=== PATIENT | female | born 1960 | race Caucasian/White ===

== ENCOUNTER 2018-10-10 07:11 | Day surgery (SDC) | payer OTHER ==
[2018-10-10] MEDS ORDERED: PROPOFOL 200 MG/20 ML VIAL IV ONE (08:48)
[2018-10-10] MEDS ORDERED: FAMOTIDINE 20 MG/2 ML VIAL IV ONE (08:48)
[2018-10-10] MEDS ORDERED: SEVOFLURANE 250 ML LIQUID IH ONE (08:48)
[2018-10-10] MEDS ORDERED: fentaNYL CITRATE/PF 100 MCG/2 ML INJ. ONE ×2 (08:48→12:56)
[2018-10-10] MEDS ORDERED: LACTATED RINGERS 1,000 ML IV.SOLN IV ONE ×2 (08:48)
[2018-10-10] MEDS ORDERED: MIDAZOLAM HCL 2 MG/2 ML VIAL ONE (08:48)
[2018-10-10] MEDS ORDERED: DEXAMETHASONE SODIUM PHOSPHATE 10 MG/ML VIAL ONE (08:48)
[2018-10-10] MEDS ORDERED: FENTANYL CITRATE/PF 250 MCG/5 ML INJ. ONE (08:48)
[2018-10-10] MEDS ORDERED: ePHEDrine SULFATE 50 MG/1 ML IVP ONE (08:48)
[2018-10-10] MEDS ORDERED: ENOXAPARIN SODIUM 40 MG/0.4 ML DISP.SYRIN SQ ONE (08:48)
[2018-10-10] MEDS ORDERED: ROCURONIUM BROMIDE 10 MG/ML 5ML VIAL ONE (08:48)
[2018-10-10] MEDS ORDERED: CLINDAMYCIN PHOSPHATE 900 MG/6 ML VIAL ONE (08:48)
[2018-10-10] MEDS ORDERED: SCOPOLAMINE HYDROBROMIDE 1.5MG/72HR PATCH TD ONE (08:48)
[2018-10-10] MEDS ORDERED: HYDROmorphone HCL/PF 1 MG/ML VIAL ONE ×2 (08:48→13:10)
[2018-10-10] MEDS ORDERED: LIDOCAINE HCL 2% PF 100MG/5ML VIAL IJ ONE (08:48)
[2018-10-10] MEDS ORDERED: SUGAMMADEX SODIUM 200 MG/2 ML VIAL IV ONE (08:48)
[2018-10-10] MEDS ORDERED: ONDANSETRON HCL/PF 4 MG/ 2ML VIAL ONE (08:48)
--- NOTE | 2018-10-11 12:07 | Operative Note ---
PREOPERATIVE DIAGNOSIS: 1. Morbid obesity. 2. Hypertension. 3. Gastroesophageal reflux disease. 4. Hyperlipidemia. 5. Type 2 diabetes. 6. Sleep apnea. POSTOPERATIVE DIAGNOSIS: 1. Morbid obesity. 2. Hypertension. 3. Gastroesophageal reflux disease. 4. Hyperlipidemia. 5. Type 2 diabetes. 6. Sleep apnea. PROCEDURES PERFORMED: 1. Laparoscopic vertical sleeve gastrectomy. 2. Upper gastrointestinal endoscopy. SURGEON: Dhaval Guaman M.D. INDICATIONS FOR PROCEDURE: Ms. Pierre is a 56-year-old female who presented with features of morbid obesity. She was noted to have a weight of 203 pounds with a BMI of 38.9 with the above-listed comorbidities. The patient was advised laparoscopic vertical sleeve gastrectomy and possible hiatal hernia repair. The patient showed understanding and agreed to proceed. DESCRIPTION OF PROCEDURE: After explaining to the patient in detail and informed consent was obtained, the patient was identified in the preoperative holding area. The patient was transferred to the operating room and was placed in supine position. Sequential compressive devices were placed for DVT prophylaxis. Preoperative antibiotics were given. After induction of anesthesia, the abdomen was prepped and draped in a sterile fashion. Through a left upper quadrant 1-cm incision, and using Optiview technique, the peritoneal cavity was entered and pneumoperitoneum was created. Thereafter, under direct vision, another 5-mm trocar was placed in the left midabdomen and another 15-mm trocar was placed in the right midabdomen. Through a 1-cm incision in the right subcostal region, another 5-mm trocar was placed. Through a 1-cm incision in the epigastrium, a Malik retractor was introduced and the left lobe of the liver was retracted. On initial inspection, the patient was noted to have no evidence of hiatal hernia. I took down the gastroepiploic vessels using a LigaSure. This was continued superiorly. The short gastric vessels were taken down. The gastrophrenic ligament was divided and the Angle of His was mobilized. The posterior attachments of the stomach on the pancreas were released. Distally, the gastroepiploic vessels were taken down up to about 4 cm proximal to the pylorus. At this point, a #38 [place]st Bougie was introduced into the stomach and was placed along the lesser curve. The stomach was then divided in a vertical fashion with multiple Endo DANIE Covidien Black Load Staplers. The first firing was directed outwards towards the greater curvature. Subsequent firings were directed towards the Angle of His to create a loose sleeve around the #38 [place] bougie. The bougie was then removed and an upper GI endoscopy was performed at this point. The scope was introduced into the esophagus and was gradually advanced into the stomach. The GE junction appeared normal. The sleeve size appeared normal. No evidence of any active bleeding was noted. The stomach was insufflated with air and irrigation of fluid along the staple line revealed no evidence of air leak. The stomach was then suctioned out and the scope was removed. Absolute hemostasis was ensured. Thorough saline irrigation was given. The Malik retractor was removed. Approximately 10 mL of a lidocaine- Marcaine mix was instilled under the left hemidiaphragm. The sleeve gastrectomy specimen was removed. The abdomen was then deflated. The incisions were closed with 4-0 Monocryl. Dermabond was applied. Approximately 10 mL of a lidocaine- Marcaine mix was injected into all the incisions. The patient was awakened from anesthesia and was transferred to the recovery room in stable condition. ESTIMATED BLOOD LOSS: Approximately 25 mL. CONDITION OF THE PATIENT: Stable. FLUIDS GIVEN: Per Anesthesia note. SPECIMEN(S) SENT: Sleeve gastrectomy specimen. COMPLICATIONS: None. ANESTHESIA: General. Dhaval Guaman M.D. GINA/aj Job #[id number] @ 1236 @ 1132 MTDD
== END 2018-10-10 14:04 | disposition other institution (70) ==
LOC: OPSURG 07:11
PROVIDERS: ATTEND Surgery
DX: E66.01 Morbid (severe) obesity due to excess calories (principal); Z68.38 Body mass index [BMI] 38.0-38.9, adult; E11.9 Type 2 diabetes mellitus without complications; I10 Essential (primary) hypertension; E78.5 Hyperlipidemia, unspecified; G47.33 Obstructive sleep apnea (adult) (pediatric)
CPT/HCPCS: 43235; 43775; 88305; A9270; J1170; J1650; J2001; J2250; J2405; J2704; J3010; J7120

== ENCOUNTER 2018-10-10 14:05 | Inpatient (IN) | payer OTHER ==
[2018-10-10] MEDS ORDERED: HYDROmorphone HCL 2 MG TABLET PO PRN (15:20)
--- NOTE | 2018-10-10 15:20 | History and Physical Report ---
History of Present Illnes - History of Present Illness Reason for Visit: s/p gastric sleeve History of Present Illness: Patient is a 57-year-old white female with a 10 year history of increasing weight gain to the point she now has morbid obesity. Patient has tried various dietary regimen medications and exercising is not been successful in maintaining weight loss. 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 Gastrointestinal: GERD Heme/Onc: Anemia NOS (iron def) Psych: Depression Endocrine: Diabetes (Last A1c 6.1) - Past Surgical History Past Surgical History: , Other (carpal tunnel release bilteral, removal of blood clot in left thigh, right ooperectomy, ORIF right ankle, left carotid enderarterectomy with stent, athrosocpy right knee) - Past Family History Mother Family History: Cancer (stomach), (75yo) Father Family History: CAD, (41yo) Brother 1 Family History: CAD, (41) Brother 2 Family History: CAD, (54) Brother 3 Family History: DM, Hypertension Brother 4 Family History: DM, Hypertension Sister 1 Family History: DM, Hypertension Sister 2 Family History: DM Sister 3 Family History: DM, Hypertension Sister 4 Family History: DM, Hypertension - Past Social History Smoke: No Alcohol: None, Occassional ( carotid a) Drugs: None Lives: With Family Domestic Violence: Negative - Health Maintenance Health Maintenance: Influenza Vaccine Influenza Vaccine: Current for this Influenza Season Pneumonia Vaccine: No - Unable to Obtain History Unable to Obtain: No Review of Systems - Review of Systems Constitutional: negative: Fever, Chills, Weakness Eyes: negative: pain, conjunctivae inflammation ENT: negative: Ear Pain, Ear Discharge, Nose Pain, Nose Discharge, Nose Congestion, Mouth Pain Respiratory: negative: Cough, Shortness of Breath, Hemoptysis, SOB with Excertion, Pleuritic Pain Cardiovascular: negative: Chest Pain, Palpitations, Light Headedness Gastrointestinal: negative: Nausea, Vomiting, Abdominal Pain, Diarrhea, Constipation, Melena, Hematochezia Genitourinary: negative: Dysuria, Frequency, Incontinence Musculoskeletal: negative: Back Pain Skin: negative: Rash, Jaundice Neurological: negative: Weakness, Numbness, Incoordination, Change in Speech, Confusion, Seizures - Medications/Allergies Allergies/Adverse Reactions: Allergies Allergy/AdvReac Type Severity Reaction Status Date / Time latex Allergy Verified 10/10/18 20:53 Penicillins Allergy Verified 10/10/18 20:53 trazodone Allergy Verified 10/10/18 20:53 Home Medications: Home Medications Aspirin [Lo-Dose Aspirin EC] 81 mg PO D 10/10/18 Atorvastatin Calcium 10 mg PO HS 10/10/18 Calcium Carbonate/Vitamin D3 [Calcium 600-Vit D3 200 Tablet] 1 each PO BID 10/10/18 Clopidogrel Bisulfate [Plavix] 75 mg PO QD 10/10/18 Cyanocobalamin (Vitamin B-12) [Vitamin B-12] 1,000 mcg PO D 10/10/18 Ergocalciferol (Vitamin D2) [Vitamin D2] 50,000 unit PO WEEK 10/10/18 Ferrous Sulfate [Iron] 325 mg PO D 10/10/18 Hydroxyzine HCl 50 mg PO BID 10/10/18 Liraglutide [Victoza 2-Kit] 1.2 mg SQ D 10/10/18 Losartan/Hydrochlorothiazide [Losartan-Hctz 100-25 mg Tab] 1 each PO D 10/10/18 Metformin HCl 1,000 mg PO BID 10/10/18 Metoprolol Tartrate [Lopressor] 25 mg PO BID 10/10/18 Pantoprazole Sodium [Protonix] 20 mg PO BID 10/10/18 Venlafaxine HCl [Venlafaxine HCl ER] 75 mg PO BID 10/10/18 Exam - Exam General: Alert, Oriented to Person, Oriented to Place, Oriented to Time, Cooperative HEENT: Atraumatic, PERRLA, EOMI, Mouth Mucous membr. moist/[place], Nose Mucous membr. moist/[place], Dentition Normal Neck: Normal Range of Motion Lungs: Clear to auscultation, Normal air movement, Speaks full Sentences Cardiovascular: Regular rate, Normal S1, Normal S2, No murmurs Peripheral Edema: none Peripheral Pulses: intact and normal Abdomen: Normal bowel sounds, Soft, No hepatospenomegaly, No masses, Other (mild diffuse tenderness, incision sites clean and dry) Integumentary: Normal, [place], Warm, Dry Extremities: No clubbing, No cyanosis, No edema, Normal pulses, No tenderness/swelling Neurological: Normal gait, Normal speech, Strength Equal Bilat, Normal tone, Sensation intact, Cranial nerves 3-12 NL, Reflexes 2+ Psych/Mental Status: Mental status NL, Mood NL, Appropriate Affect, Intact Judgment Assessment/Plan - Assessment/Plan (1) S/P gastric surgery Status: Acute (2) Diabetes type 2, controlled Status: Acute Qualifiers: 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
[2018-10-10] MEDS ORDERED: 0.9 % SODIUM CHLORIDE 1,000 ML IV ONE (15:46)
[2018-10-10] MEDS: ONDANSETRON HCL/PF 4 MG/ 2ML VIAL IVP PRN (16:30)
[2018-10-10] MEDS: HYDROCODON-ACETAMIN 7.5-325/15ML SOLN UD CUP PO PRN ×2 (16:30→20:54)
[2018-10-10] MEDS: KETOROLAC TROMETHAMINE 30 MG/1ML VIAL IV PRN (16:30)
[2018-10-10] MEDS: 0.9 % SODIUM CHLORIDE 1,000 ML IV SCH ×3 (16:34→22:43)
[2018-10-10] MEDS: CLOPIDOGREL BISULFATE 75 MG TABLET PO SCH (17:43)
[2018-10-10] MEDS ORDERED: CLINDAMYCIN PHOSPHATE/D5W 50 ML IV ONE (18:37)
[2018-10-10 18:42] VITALS: BMI 39.8
[2018-10-10] MEDS: CLINDAMYCIN PHOSPHATE/D5W 600 MG in PREMIX BAG 1 BAG IV SCH (20:44)
[2018-10-10] MEDS: FAMOTIDINE 20 MG/2 ML VIAL IVP SCH (21:16)
[2018-10-11] MEDS ORDERED: CLINDAMYCIN PHOSPHATE/D5W 600 MG/50 ML PIGGYBACK IV ONE (03:30)
[2018-10-11] MEDS: CLINDAMYCIN PHOSPHATE/D5W 600 MG in PREMIX BAG 1 BAG IV SCH (03:35)
[2018-10-11] MEDS: HYDROCODON-ACETAMIN 7.5-325/15ML SOLN UD CUP PO PRN ×2 (03:39→09:08)
[2018-10-11] MEDS: 0.9 % SODIUM CHLORIDE 1,000 ML IV SCH ×3 (06:26→21:20)
--- NOTE | 2018-10-11 06:49 | Inpatient Progress Note ---
Subjective - Required Recertification Statement I anticipate X number of days because-include discharge plan: 1 - Review of Systems Events since last encounter: Patient states that she had a decent night-she had some nausea yesterday- she states nausea is mild this morning- abdominal pain is improving- she states that she has been belching and passing gas. She is excited that she will get to advance her diet today- she has family at the bedside- educated patient on continuing to ambulate today, continue to use incentive spirometer frequently and use SCDs while in bed. General: Denies: Chills, Night Sweats HEENT: Denies: Head Aches, Sinus Congestion Pulmonary: Denies: Dyspnea Cardiovascular: Denies: Chest Pain, Light Headedness Gastrointestinal: Nausea, Abdominal Pain. Denies: Vomiting Genitourinary: Denies: Dysuria Musculoskeletal: Denies: Back Pain Neurological: Denies: Weakness, Confusion Objective - Exam Vitals and I&O: Vital Signs Temp 97.7 F 10/11/18 06:00 Pulse 75 10/11/18 06:00 Resp 18 10/11/18 06:00 BP 111/49 10/11/18 06:00 Pulse Ox 96 10/11/18 06:00 Intake & Output 10/10/18 10/10/18 10/11/18 11:59 23:59 11:59 Output Total 400 1200 Balance -400 -1200 Weight 92.5 kg Output: Urine 400 1200 Other: Voiding Method Toilet Toilet # Voids 2 # Bowel Movements 0 General: Alert, Oriented to Person, Oriented to Place, Oriented to Time, Cooperative, No acute distress, Morbidly Obese HEENT: PERRLA, Mouth Mucous membr. moist/[place], Nose Mucous membr. moist/[place] Neck: +2 carotid pulse wo bruit Lungs: Clear to auscultation, Normal air movement, Speaks full Sentences Cardiovascular: Regular rate, Normal S1, Normal S2 Abdomen: Soft, Decreased Bowel Sounds Extremities: No edema, Normal pulses, No tenderness/swelling Skin: Normal, [place], Warm, Dry Neurological: Normal gait, Normal speech, Strength Equal Bilat, Normal tone, Sensation intact Psych/Mental Status: Mental status NL, Mood NL, Appropriate Affect, Intact Judgment Assessment/Plan - Assessment/Plan (1) Diabetes type 2, controlled Status: Acute Current Visit: Yes Qualifiers: 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: without keno terminal operator use Diabetes mellitus complication status: without complication Qualified Code(s): E11.9 - Type 2 diabetes mellitus without complications Assessment: Will monitor blood sugars- will advance diet to stage 1 bariatric (2) Essential hypertension Status: Acute Current Visit: Yes Assessment: Blood pressures are stable Plan: Will continue to hold blood pressure medication and monitor closely (3) GERD without esophagitis Status: Acute Current Visit: Yes Assessment: Minimal nausea- no vomiting- will advance diet Plan: Will continue with Pepcid IV BID (4) S/P gastric surgery Status: Acute Current Visit: Yes Assessment: Incision without redness or drainage, positive bowel sounds, minimal discomfort, belching and flatus, no extremity pain or edema Plan: Will continue with IVF, IV Pepcid, frequent ambulation, frequent incentive spirometer use, SCDs while in bed, advance diet per bariatric stage 1
[2018-10-11] MEDS: ONDANSETRON HCL/PF 4 MG/ 2ML VIAL IVP PRN (09:20)
[2018-10-11] MEDS: KETOROLAC TROMETHAMINE 30 MG/1ML VIAL IV PRN (09:21)
[2018-10-11] MEDS: FAMOTIDINE 20 MG/2 ML VIAL IVP SCH ×2 (09:24→21:20)
[2018-10-11] MEDS: CLOPIDOGREL BISULFATE 75 MG TABLET PO SCH (18:08)
[2018-10-12] MEDS: KETOROLAC TROMETHAMINE 30 MG/1ML VIAL IV PRN ×2 (02:05→12:05)
[2018-10-12] MEDS: 0.9 % SODIUM CHLORIDE 1,000 ML IV SCH (04:56)
--- NOTE | 2018-10-12 06:58 | Discharge Summary ---
Discharge Summary - Discharge Sumary History of Present Illness: Patient is a 58-year-old white female with an extensive history of increasing weight gain to the point she now has morbid obesity. Patient has tried various dietary regimen medications and exercising is not been successful in maintaining weight loss. Condition at Discharge: Stable Home Medications: Ambulatory Orders Medication Instructions Recorded Aspirin [Lo-Dose Aspirin EC] 81 mg PO D 10/10/18 Atorvastatin Calcium 10 mg PO HS 10/10/18 Calcium Carbonate/Vitamin D3 1 each PO BID 10/10/18 [Calcium 600-Vit D3 200 Tablet] Clopidogrel Bisulfate [Plavix] 75 mg PO QD 10/10/18 Cyanocobalamin (Vitamin B-12) 1,000 mcg PO D 10/10/18 [Vitamin B-12] Ergocalciferol (Vitamin D2) 50,000 unit PO WEEK 10/10/18 [Vitamin D2] Ferrous Sulfate [Iron] 325 mg PO D 10/10/18 Hydroxyzine HCl 50 mg PO BID 10/10/18 Liraglutide [Victoza 2-Kit] 1.2 mg SQ D 10/10/18 Losartan/Hydrochlorothiazide 1 each PO D 10/10/18 [Losartan-Hctz 100-25 mg Tab] Metformin HCl 1,000 mg PO BID 10/10/18 Metoprolol Tartrate [Lopressor] 25 mg PO BID 10/10/18 Pantoprazole Sodium [Protonix] 20 mg PO BID 10/10/18 Venlafaxine HCl [Venlafaxine HCl 75 mg PO BID 10/10/18 ER] Consultations this Visit: None Procedures this Visit: Other (S/P Gastric Sleeve Surgery) Allergies/Adverse Reactions: Allergies Allergy/AdvReac Type Severity Reaction Status Date / Time latex Allergy Verified 10/10/18 20:53 Penicillins Allergy Verified 10/10/18 20:53 trazodone Allergy Verified 10/10/18 20:53 Patient Problems: Current Active Problems Problem Status Onset Diabetes type 2, controlled Acute Essential hypertension Acute GERD without esophagitis Acute Hyperlipemia Acute S/P gastric surgery Acute Status post CVA Acute Discharge Summary: Patient is a 58-year-old female that underwent the gastric sleeve procedure and has done well. She has been very cooperative with her care by ambulating frequently, using her incentive spirometer, and wearing her SCDs while in bed. She has been compliant with her diet during hospitalization. She is having minimal discomfort at this time and minimal nausea- she has is passing gas and belching. She is aware of discharge instructions and what she can and cannot do post surgical- she is aware of the strict diet she must follow to decrease discomfort and have success after procedure. She has family support and significant other will be taking her home- medications written by surgeon given to patient. She feels ready to go home. Hospital Course: Patient received pain medications, antiemetics, and IVF and was transitioned to oral. She has been up ambulating and using incentive spirometer. - Final Diagnosis (1) Diabetes type 2, controlled Problems: Blood sugars have been stable, she will check blood sugars daily- keep log and take to follow up appointment Right or Left: Right (2) Essential hypertension Problems: Blood pressure has been stable- pt will hold BP med and will take blood pressure daily, keep log, and take to follow up appointment Right or Left: Right (3) GERD without esophagitis Problems: stable on home meds Right or Left: Right (4) S/P gastric surgery Problems: Incision without redness or drainage, positive bowel sounds, minimal discomfort, belching and flatus, no extremity pain or edema Right or Left: Right
[2018-10-12 08:44] VITALS: BP 127/70
[2018-10-12] MEDS: FAMOTIDINE 20 MG/2 ML VIAL IVP SCH (11:57)
[2018-10-12] MEDS: ONDANSETRON HCL/PF 4 MG/ 2ML VIAL IVP PRN (12:06)
== END 2018-10-12 12:50 | disposition home or self-care (01) | DRG 948 ==
LOC: SOUTH 14:05
PROVIDERS: ADMIT Family Medicine; ATTEND Family Medicine
DX: G89.18 Other acute postprocedural pain (principal); R11.0 Nausea; E66.01 Morbid (severe) obesity due to excess calories; E11.9 Type 2 diabetes mellitus without complications; I10 Essential (primary) hypertension; K21.9 Gastro-esophageal reflux disease without esophagitis
CPT/HCPCS: 97116; 97161; 97165; 97535; A9270; J1885; J2405; J7030; 99221; 99231; 99238; S1016